=== PATIENT | female | born 1985 | race Caucasian/White ===

== ENCOUNTER 2022-04-24 23:13 | Emergency (ER) | payer OTHER, SELFPAY ==
[2022-04-24 23:15] VITALS: BP 140/91; PULSE 87; RESP 15; TEMP 36.6; O2SAT 100; BMI 29.5
--- NOTE | 2022-04-24 23:35 | EDS_ITS ---
HPI HPI - Female History of Present Illness Chief Complaint: Vag Bleeding Informant: patient Bleeding Issue: Positive for Vaginal bleeding Onset: Days (3) Context: Gradual Onset Current Severity: Heavy Maximum Severity: Heavy Narrative Narrative: Patient states she has a history of heavy menstrual cycles, this 1 started 3 days ago, but it started becoming more severe than usual, she is having large blood clots in addition to heavy bleeding, today she started feeling shaky, malaised, lightheaded, near syncopal. For the last couple hours, maybe 2 she states, she was going through 2 tampons per hour. For the rest of the day, maybe 1 tampon every several hours. She put in a tampon 1-2 hours ago after taking out 1 that was soaked. She has not had syncope. She denies any abdominal pain, back pain, urinary symptoms. She has been eating and drinking normally. No nausea or vomiting. No fevers or chills. She denies likelihood of . 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 [facility] Medical History Anxiety Asthma Depression PTSD (post-traumatic stress disorder) Seizure Home Medications venlafaxine 150 mg capsule,extended release 24 hr 75 mg PO DAILY 03/03/15 [History Last Taken 06/21/16] acamprosate 333 mg tablet,delayed release mg PO 04/24/22 [History Last Taken Unknown] gabapentin 300 mg capsule mg 04/24/22 [History Last Taken Unknown] lamotrigine 100 mg tablet (Lamictal) 100 mg PO DAILY 04/24/22 [History Last Taken Unknown] Allergy/AdvReac Type Severity Reaction Status Date / Time oxycodone HCl [From Percocet] Allergy Other Verified 04/24/22 23:18 quetiapine fumarate Allergy Other Verified 04/24/22 23:18 [From Seroquel] Social History Smoking Status: Current every day smoker tobacco type: cigarettes ROS ROS ED Constitutional Constitutional ED: Reports malaise; Denies chills or fever(s) Eyes Eyes: Denies change in vision or diplopia ENT ENT ED: Denies rhinorrhea or sore throat Cardiovascular Cardiovascular: Reports lightheadedness; Denies chest pain or palpitations Respiratory/Chest Respiratory/Chest: Denies cough or dyspnea Gastrointestinal Gastrointestinal: Denies abdominal pain, diarrhea, nausea or vomiting Genitourinary Genitourinary ED: Denies dysuria or hematuria Musculoskeletal Musculoskeletal: Denies back pain or neck pain Integumentary Denies abscess or rash Neurologic Neurologic: Denies headache(s), paresthesias or weakness Psychiatric Psychiatric: Denies anxiety or suicidal thoughts EXAM Physical Exam Const Vital Signs: 04/24/22 23:15 04/25/22 00:26 Temperature 97.9 F Temperature Source Temporal Pulse Rate 87 Pulse Rate [Lying] 69 Pulse Rate [Sitting (for 1 minute prior to obtaining)] 73 Pulse Rate [Standing (for 1 minute prior to obtaining)] 81 Respiratory Rate 15 Blood Pressure 140/91 H Blood Pressure [Lying] 134/92 H Blood Pressure [Sitting (for 1 minute prior to obtaining)] 135/101 H Blood Pressure [Standing (for 1 minute prior to obtaining)] 146/103 H Blood Pressure Mean 107 Blood Pressure Mean [Lying] 106 Blood Pressure Mean [Sitting (for 1 minute prior to obtaining)] 112 Blood Pressure Mean [Standing (for 1 minute prior to obtaining)] 117 Pulse Ox 100 Oxygen Delivery Method Room Air Positive well nourished and well developed General Appearance ED: well developed and NAD HEENT Reports moist mucous membranes normocephalic and atraumatic Eyes PERRL and EOMs intact bilaterally Neck full ROM and supple Resp normal respiratory effort and clear to auscultation bilaterally Cardio regular rate, regular rhythm and no murmurs Rate: Negative for tachycardic GI non-tender and non-distended Auscultation: normoactive bowel sounds Palpation: soft Narrative: Tampon removed, barely any blood on it. On speculum exam, there is no blood or clots in the vaginal vault at all and no active bleeding. Benign nonpainful exam. Back/Spine no CVA tenderness General Back: other FROM Extremity normal to inspection General Extremety ED: Negative for edema, pulses abnormal or tenderness General Extremity: Negative for edema or pulses abnormal Neuro oriented x3, CN's II-XII intact bilaterally and no sensory deficits noted Sensorium / Orientation: awake and alert Motor Exam: strength 5/5 throughout Skin no rashes or lesions noted and no wounds MDM MDM MDM Narrative Medical decision making narrative: Exam very reassuring, hopefully since the patient passed several clots now her bleeding will taper. No active bleeding in the emergency department on exam or afterwards. Her hemoglobin is 13.7 very reassuring. Orthostatics negative she was given IV fluids and felt better. At this time since she has had no further bleeding I do not think she needs an emergent [employer] consult or emergent medications, however given her longstanding history of menorrhagia, she may be a candidate for control pills or other medications to help level this off. Close outpatient follow-up with gynecology advised and she is comfortable with that plan given referral to the on-call. Lab Data Attestation: I reviewed the patient's lab results. Labs: Laboratory Results - last 24 hr 04/24/22 04/24/22 04/24/22 23:52 23:52 23:52 WBC 7.7 RBC 4.60 Hgb 13.7 Hct 41.6 MCV 90.4 MCH 29.8 MCHC 32.9 RDW Std Deviation 47.1 H RDW Coeff of Isabell 14.3 Plt Count 273 MPV 9.7 Immature Gran % (Auto) 0.100 Neut % (Auto) 54.3 Lymph % (Auto) 34.2 [place] % (Auto) 7.8 Eos % (Auto) 3.0 Baso % (Auto) 0.6 Absolute Neuts (auto) 4.2 Absolute Lymphs (auto) 2.64 Nucleated RBC % 0 Sodium 138 Potassium 3.5 Chloride 107 Carbon Dioxide 25.0 Anion Gap 6 BUN 10 Creatinine 0.92 Estim Creat Clear Calc 74.40 Est GFR (MDRD) Af Amer 89 Est GFR (MDRD) Non-Af 74 BUN/Creatinine Ratio 10.8 Glucose 109 H Calcium 8.7 Serum , Qual NEGATIVE Discharge Plan Triage Chief Complaint: Vag Bleeding ED Provider: Kevin Johnson Dx/Rx/DC Orders Clinical Impression: Menorrhagia, Postural dizziness with near syncope Instructions: ED Heavy Menstrual Bleeding Prescriptions: No Action venlafaxine 150 MG capsule 75 mg PO DAILY lamotrigine [Lamictal] 100 mg Tablet 100 mg PO DAILY gabapentin 300 mg capsule acamprosate 333 mg tablet,delayed release (DR/EC) PO Label Comments: take 2 tablets by mouth three times a day (APPROXIMATELY 6 HOURS BETWEEN DOSES) Primary Care Provider: Care Physician,No Primary Referrals: Cynthia Abdi MD [Med Staff - Courtesy Staff] - As soon as possible Disposition Disposition: Home, Self Care
[2022-04-24 23:58] LABS: Absolute Lymphocyte Count 2.64 X10^3/uL (0.83-4.51); Absolute Neutrophil Count 4.2 X10^3/uL (2.0-7.7); Basophil# 0.05 X10^3/uL; Basophil% 0.6 % (0-1); Eosinophil# 0.23 X10^3/uL; Hematocrit 41.6 % (37-47); Hemoglobin 13.7 g/dL (12.0-15.0); Lymphocyte # 2.64 X10^3/ul (0.83-4.51); Lymphocyte % 34.2 % (19-41); Mean Corp Hgb Conc 32.9 g/dL (32-36); Mean Corpuscular Hgb 29.8 pg (27.0-32.0); Mean Corpuscular Volume 90.4 fL (81-99); Mean Platelet Vol. 9.7 fl (6.2-12.0); Monocyte% 7.8 % (0-10); NRBC Flagged by Analyzer 0 % (0-5); Neutrophil # 4.18 X10^3/uL (2.7-7.7); Neutrophil % 54.3 % (47-70); Platelet Count 273 K/mm3 (150-450); RBC Distribution Width CV 14.3 % (11.6-14.6); RBC Distribution Width SD 47.1 fl (35.1-43.9); White Blood Count 7.7 K/mm3 (4.4-11.0)
[2022-04-25 00:14] LABS: Anion Gap 6 (5-15); BUN 10 mg/dL (7-18); BUN/Creat Ratio 10.8 RATIO (10-20); Calcium,Total 8.7 mg/dL (8.5-10.1); Chloride 107 mmol/L (98-107); Creatinine, Serum 0.92 mg/dL (0.55-1.02); EST Glomerular Filtration Rate 74 mL/min (>60); Est Glom Filt Rate - Afr Amer 89 mL/min (>60); Glucose 109 mg/dL (74-106); Potassium 3.5 mmol/L (3.5-5.1); Sodium Level 138 mmol/L (136-145)
[2022-04-25 00:19] LABS: Internal QC Validated? YES +Cl - CLEAR BKGD; Pregnancy, Serum, hCG Quali. NEGATIVE Negative
[2022-04-25 00:26] VITALS: BP 134/92; BP 135/101; BP 146/103; PULSE 69; PULSE 73; PULSE 81
[2022-04-25] MEDS: 0.9% Normal Saline 1,000 ML 999 ML IV (00:38)
== END 2022-04-25 01:32 | disposition home or self-care (01) ==
PROVIDERS: Emergency Provider Emergency Medicine; Visit Provider Emergency Medicine
DX: N92.0 Excessive and frequent menstruation with regular cycle (principal); R55 Syncope and collapse; N93.9 Abnormal uterine and vaginal bleeding, unspecified; F17.210 Nicotine dependence, cigarettes, uncomplicated; R42 Dizziness and giddiness; J45.909 Unspecified asthma, uncomplicated
CPT/HCPCS: 80048; 84703; 85025; 96360; 99284; J7030; A4216

== ENCOUNTER 2022-08-03 19:07 | Emergency (ER) | payer OTHER, SELFPAY ==
[2022-08-03 19:08] VITALS: BP 124/65; PULSE 84; RESP 18; TEMP 35.8; O2SAT 99; BMI 32.9
[2022-08-03 20:53] VITALS: RESP 16; TEMP 36.6
[2022-08-03] MEDS: Naproxen 500 MG Tablet PO (22:04)
[2022-08-03] MEDS: Amox/Clavulanate 875 MG Tablet PO (22:04)
[2022-08-03 22:09] VITALS: BP 132/78; PULSE 75; RESP 15; TEMP 36.9; O2SAT 97
--- NOTE | 2022-08-03 22:56 | EDS_ITS ---
HPI History of Present Illness Chief Complaint: Dental Narrative Narrative: 36-year-old female with dental pain. She states he has a cracked tooth. She indicates this is her second molar on the right. Patient states that it started hurting last few days. She think she has an infection. She has a little bit of facial swelling. No difficulty swallowing or breathing. No fevers or chills. She states she has not seen a dentist. She states this is because she has not dental insurance. Patient also indicates she has a small bump on the left lower abdomen. She states this comes and goes with her menstrual cycle. It does not cause very much pain. Its not tender now. Normal stool and urine. No nausea or vomiting. [facility] Medical History Anxiety Asthma Depression PTSD (post-traumatic stress disorder) Seizure Home Medications venlafaxine 150 mg capsule,extended release 24 hr 75 mg PO DAILY 03/03/15 [History Last Taken 06/21/16] acamprosate 333 mg tablet,delayed release mg PO 04/24/22 [History Last Taken Unknown] gabapentin 300 mg capsule mg 04/24/22 [History Last Taken Unknown] lamotrigine 100 mg tablet (Lamictal) 100 mg PO DAILY 04/24/22 [History Last Taken Unknown] amoxicillin 875 mg-potassium clavulanate 125 mg tablet 1 tab PO BID #20 tabs 08/03/22 [Rx Last Taken Unknown] naproxen 500 mg tablet (Naprosyn) 500 mg PO BID PRN pain #20 tabs 08/03/22 [Rx Last Taken Unknown] Allergy/AdvReac Type Severity Reaction Status Date / Time oxycodone HCl [From Percocet] Allergy Other Verified 08/03/22 19:08 quetiapine fumarate Allergy Other Verified 08/03/22 19:08 [From Seroquel] Social History Smoking Status: Current every day smoker tobacco type: cigarettes ROS ROS ED Constitutional Constitutional ED: Denies chills or fever(s) Eyes Eyes: Denies change in vision or other ENT ENT ED: Reports other Details: Dental pain Cardiovascular Cardiovascular: Denies chest pain or palpitations Respiratory/Chest Respiratory/Chest: Denies cough or dyspnea Gastrointestinal Gastrointestinal: Denies abdominal pain or constipation Genitourinary Genitourinary ED: Denies dysuria or hematuria Musculoskeletal Musculoskeletal: Denies arthralgias or back pain Integumentary Denies abscess or Abrasions Neurologic Neurologic: Denies headache(s) Psychiatric Psychiatric: Denies anxiety or depression EXAM Physical Exam Const Vital Signs: 08/03/22 19:08 08/03/22 20:53 08/03/22 22:09 Temperature 96.5 F L 98 F 98.5 F Temperature Source Temporal Temporal Temporal Pulse Rate 84 75 Respiratory Rate 18 16 15 Blood Pressure 124/65 H 132/78 H Blood Pressure Mean 84 96 Pulse Ox 99 97 Oxygen Delivery Method Room Air Room Air Positive well nourished and obese General Appearance ED: NAD Nutritional Appearance: obese HEENT HEENT Narrative: Dental caries at second molar on the right. Dental percussion tenderness here. Gingiva are normal. No sublingual edema. Tongue is normal. No submental edema. Tolerating her own secretions. No trismus. Mouth ED: Yes oral and palatal mucosa normal, Yes lips normal and Yes tongue normal Mouth: oral and palatal mucosa normal, lips normal and tongue normal Neck General: normal visual inspection Resp normal respiratory effort and no retractions Neuro oriented x3 Sensorium / Orientation: alert Motor Exam: strength 5/5 throughout Psych mental status grossly normal MDM MDM MDM Narrative Medical decision making narrative: Patient with dental pain. She has a history of a cracked tooth which is now apparently infected. No evidence of Ludwigs angina she started on Augmentin and given Naprosyn for home. She is given a dental referral sheet. On that she did not blood work or imaging. She was amenable to this plan. Impression: 1. Dental infection 2. Odontalgia Discharge Plan Triage Chief Complaint: Dental Other Complaint: Wound ED Provider: Juan Vazquez Dx/Rx/DC Orders Instructions: ED Dental Abscess Prescriptions: New naproxen [Naprosyn] 500 mg tablet 500 mg PO BID PRN (Reason: pain) Qty: 20 0RF amoxicillin-pot clavulanate 875-125 mg tablet 1 tab PO BID Qty: 20 0RF No Action venlafaxine 150 MG capsule 75 mg PO DAILY lamotrigine [Lamictal] 100 mg Tablet 100 mg PO DAILY gabapentin 300 mg capsule acamprosate 333 mg tablet,delayed release (DR/EC) PO Label Comments: take 2 tablets by mouth three times a day (APPROXIMATELY 6 HOURS BETWEEN DOSES) Primary Care Provider: Care Physician,No Primary Referrals: Care Physician,No Primary [Primary Care Provider] - Disposition Disposition: Home, Self Care Discharge Date/Time: 08/03/22 22:10
== END 2022-08-03 22:10 | disposition home or self-care (01) ==
PROVIDERS: Emergency Provider Student in an Organized Health Care Education/Training Program; Visit Provider Student in an Organized Health Care Education/Training Program
DX: K04.7 Periapical abscess without sinus (principal); K03.81 Cracked tooth; E66.9 Obesity, unspecified; F17.210 Nicotine dependence, cigarettes, uncomplicated
CPT/HCPCS: 99283